=== PATIENT | male | born 2000 | race Two or more races ===

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

== ENCOUNTER 2021-04-25 20:45 | Emergency (ER) | payer OTHER ==
[~2021-04-25] VITALS: Ht 172.7 cm; Wt 86.5 kg
[~2021-04-25 20:45] MED LIST: AMOX875T PO; OFLO5DRO7 EACH EAR
[2021-04-25] MEDS ORDERED: IV NORMAL SALINE 1000ML BAG 1,000 ML IV SCH (22:00)
[2021-04-25] MEDS ORDERED: ACETAMINOPHEN 500 MG TABLET PO ONE (22:00)
--- NOTE | 2021-04-25 22:03 | PHYS DOC ---
Past Medical History Past Medical History: No Pertinent History Past Surgical History: No Surgical History Smoking Status: Never Smoker Alcohol Use: None Drug Use: None General Adult EDM: Chief Complaint: FLU SYMPTOM HPI: HPI: Patient is a 20 year old male with no significant medical history presenting today complaining of a productive cough, nasal congestion, fever, substernal chest pain, symptoms began 3 days ago. Patient states he does not have any chest pain right now in the ED. He states he is unvaccinated against COVID19. Review of Systems: Review of Systems: Constitutional: Reports fever Eyes: Denies change in visual acuity. [] HENT: Reports nasal congestion, denies sore throat. [] Respiratory: Reports cough, denies shortness of breath. [] Cardiovascular: Denies chest pain or edema. [] GI: Denies abdominal pain, nausea, vomiting, bloody stools or diarrhea. [] : Denies dysuria. [] Musculoskeletal: Denies back pain or joint pain. [] Integument: Denies rash. [] Neurologic: Denies headache, focal weakness or sensory changes. [] Psychiatric: Denies depression or anxiety. [] Heart Score: C/O Chest Pain: N/A Risk Factors: Risk Factors: DM, Current or recent (<one month) smoker, HTN, HLP, family history of CAD, obesity. Risk Scores: Score 0 - 3: 2.5% MACE over next 6 weeks - Discharge Home Score 4 - 6: 20.3% MACE over next 6 weeks - Admit for Clinical Observation Score 7 - 10: 72.7% MACE over next 6 weeks - Early Invasive Strategies Current Medications: Current Medications Medications (Trade) Dose Ordered Sig/James Start Time Stop Time Status Last Admin Dose Admin Acetaminophen (Tylenol) 1,000 mg 1X ONCE 04/25/21 22:00 04/25/21 22:01 Sodium Chloride 1,000 ml @ 1,000 mls/hr Q1H 04/25/21 22:00 04/26/21 00:01 Allergies: Allergies: Allergies Coded Allergies Type Severity Reaction Last Updated Verified No Known Drug Allergies 04/28/16 No Physical Exam: PE: Constitutional: Well developed, well nourished, no acute distress, non-toxic appearance. [] HENT: Normocephalic, atraumatic, bilateral external ears normal, oropharynx moist, no oral exudates, nose normal. [] Eyes: PERRLA, EOMI, conjunctiva normal, no discharge. [] Neck: Normal range of motion, no tenderness, supple, no stridor. [] Cardiovascular: Tachycardic Lungs & Thorax: Bilateral breath sounds clear to auscultation [] Abdomen: Bowel sounds normal, soft, no tenderness, no masses, no pulsatile masses. [] Skin: Warm, dry, no erythema, no rash. [] Back: No tenderness, no CVA tenderness. [] Extremities: No tenderness, no cyanosis, no clubbing, ROM intact, no edema. [] Neurologic: Alert and oriented X 3, normal motor function, normal sensory function, no focal deficits noted. [] Psychologic: Affect normal, judgement normal, mood normal. [] Current Patient Data: Vital Signs: Vital Signs Date Time Temp Pulse Resp B/P (MAP) Pulse Ox O2 Delivery O2 Flow Rate FiO2 04/25/21 21:29 103.2 153 20 180/102 (128) 97 Room Air 103.2 EKG: EK interpreted by Dr. Goyal sinus tachycardia heart rate 121 Q waves on V1, T wave inversion in lead III, no STEMI [] [address] Goyal sinus tachycardia heart rate 104 no STEMI Radiology/Procedures: Radiology/Procedures: []PROCEDURE: PORTABLE CHEST 1V Exam: Chest one view INDICATION: Fever TECHNIQUE: Frontal view of the chest Comparisons: None FINDINGS: The cardiomediastinal silhouette and pulmonary vessels are within normal limits. The lung and pleural spaces are clear. IMPRESSION: No acute cardiopulmonary process. Electronically signed by: Ari Bowen MD (04/25/2021 10:19 PM) [facility] DICTATED and SIGNED BY: ARI BOWEN MD DATE: 04/25/21 [id number] Course & Med Decision Making: Course & Med Decision Making Pertinent Labs and Imaging studies reviewed. (See chart for details) This a 20-year-old male patient presenting to the ED today complaining of cough, nasal congestion, fever, chest pain, symptoms for 3 days. Vitals on arrival to the ED temperature 103.2, heart rate 153, respiration 20 on room air, O2 sats 97%, blood pressure 180/102 Patient was started on the sepsis protocol including IV fluids and Tylenol. Chest x-ray negative for pneumonia. CBC with a normal WBC, CMP with no acute findings, UA negative for infection, lactic is normal. Positive for influenza A, negative rapid Covid test 2358 Patient's heart rate has improved with 1 L of fluid he is already in the low 100s. Currently on the second liter of fluids blood pressure has come down to 147/79 Discharge to home after the second liter of fluid. Tylenol/Motrin for pain or fever. Instructed to push fluids. Maintain good antigen, follow-up with PCP next week, instructed to return to the ED at any point symptoms worsen Dragon Disclaimer: Dragon Disclaimer: This electronic medical record was generated, in whole or in part, using a voice recognition dictation system. Departure Departure Impression: Primary Impression: Fever Qualified Codes: R50.9 - Fever, unspecified Additional Impressions: Influenza A Tachycardia Cough Referrals: TAMI CARCAMO (PCP) Patient Instructions: Fever, Adult, Influenza A (H1N1) Additional Instructions: You tested positive for influenza A, we will put you on Tamiflu, take it as prescribed. Push fluids, rest, take Tylenol or Motrin for pain or fever. Maintain good hand hygiene. Follow-up with your doctor next week, come back to the ED at any point symptoms worsen Scripts Oseltamivir Phosphate (TAMIFLU) 75 Mg Capsule 1 CAP PO BID, #10 CAP Prov: ОЛЬГА MEZA APRN 04/26/21 ОЛЬГА MEZA APRN Apr 25, 2021 22:03
[2021-04-25 22:04] LABS: BASO % 0 % (0-3); EOS % 0 % (0-3); HEMATOCRIT 50.2 % (39.0-53.0); HEMOGLOBIN 17.5 g/dL (13.0-17.5); LYMPH # 0.6 x10^3/uL (1.0-4.8); LYMPH % 9 % (24-48); MEAN CORPUSCULAR HEMOGLOBIN 32 pg (25-35); MEAN CORPUSCULAR HGB CONC 35 g/dL (31-37); MEAN CORPUSCULAR VOLUME 90 fL (79-100); MONO # 0.7 x10^3/uL (0.0-1.1); MONO % 10 % (0-9); NEUT # 5.6 x10^3/uL (1.8-7.7); NEUT % 80 % (31-73); PLATELET COUNT 190 x10^3/uL (140-400); RED BLOOD COUNT 5.56 x10^6/uL (4.30-5.70); RED CELL DISTRIBUTION WIDTH 12.1 % (11.5-14.5)
--- NOTE | 2021-04-25 22:22 | RAD ---
Exam: Chest one view INDICATION: Fever TECHNIQUE: Frontal view of the chest Comparisons: None FINDINGS: The cardiomediastinal silhouette and pulmonary vessels are within normal limits. The lung and pleural spaces are clear. IMPRESSION: No acute cardiopulmonary process. Electronically signed by: Ari Dill MD (04/25/2021 10:19 PM) [facility]
[2021-04-25 22:25] LABS: CALCIUM 8.9 mg/dL (8.5-10.1); CREATININE 0.9 mg/dL (0.7-1.3); GFR 107.6; POTASSIUM 3.9 mmol/L (3.5-5.1)
[2021-04-25 22:31] LABS: ALBUMIN 4.1 g/dL (3.4-5.0); ALBUMIN/GLOBULIN RATIO 0.9 (1.0-1.7); TOTAL BILIRUBIN 0.5 mg/dL (0.2-1.0); TOTAL PROTEIN 8.7 g/dL (6.4-8.2)
[2021-04-25 22:49] LABS: BILIRUBIN,URINE NEGATIVE (NEG); CLARITY,URINE CLEAR; COLOR,URINE YELLOW; NITRITE,URINE NEGATIVE (NEG); PROTEIN,URINE NEGATIVE (NEG-TRACE); UROBILINOGEN,URINE 0.2 mg/dL (0.2 mg/dL)
[2021-04-25 22:54] LABS: INFLUENZA A PATIENT POSITIVE (NEGATIVE); INFLUENZA B PATIENT NEGATIVE (NEGATIVE)
[2021-04-25 22:56] LABS: BARBITURATES NEG (NEG); BENZODIAZEPINES NEG (NEG); CANNABINOIDS NEG (NEG); COCAINE NEG (NEG); METHADONE NEG (NEG); OPIATES NEG (NEG); PHENCYCLIDINE NEG (NEG)
[2021-04-25 22:57] LABS: BACTERIA,URINE 0 /HPF (0-FEW); RBC,URINE 0 /HPF (0-2); WBC,URINE 0 /HPF (0-4)
[2021-04-25 22:59] LABS: AMPHETAMINE/METHAMPHETAMINE NEG (NEG)
[2021-04-25] MEDS ORDERED: OSELTAMIVIR 75 MG CAPSULE PO ONE (23:30)
[2021-04-25] MEDS ORDERED: IBUPROFEN 200 MG TABLET. PO ONE (23:30)
[2021-04-26 00:30] VITALS: BP 125/72
[2021-04-26] MEDS ORDERED: OSEL75CA PO (00:42)
--- NOTE | 2021-04-26 02:48 | EKG ---
[facility] [address] [place] [address] Test Date: 2021-04-26 Test Time: 00:13:34 Pat Name: KRISTEL ELMORE Department: Room: Gender: M Washing Machine Repairer: : 2000 Requested By: ОЛЬГА MEZA Order Number: [id number] Reading MD: Herman Gutierrez MD Measurements Intervals [place] Rate: 104 P: 31 ND: 140 QRS: 14 QRSD: 84 T: 4 QT: 306 QTc: 403 Interpretive Statements SINUS TACHYCARDIA Electronically Signed On 04-27-2021 8:22:32 SUPERVISOR COATING by Herman Gutierrez MD
--- NOTE | 2021-04-26 02:48 | EKG ---
[facility] [address] [place] [address] Test Date: 2021-04-25 Test Time: 22:46:14 Pat Name: KRISTEL ELMORE Department: Room: Gender: M Manager Enrollment: : 2000 Requested By: ОЛЬГА MEZA Order Number: [id number] Reading MD: Herman Gutierrez MD Measurements Intervals [place] Rate: 121 P: 28 [place]: 146 QRS: 27 QRSD: 86 T: 0 QT: 290 QTc: 414 Interpretive Statements SINUS TACHYCARDIA NON-SPECIFIC ST/T CHANGES Electronically Signed On 04-27-2021 8:23:08 COMB SETTER by Herman Gutierrez MD
--- NOTE | 2021-04-27 16:21 | NUR ---
IP: Informed pt of negative covid test. Pt verbalized understanding.
== END 2021-04-25 22:16 | disposition home or self-care (01) ==
LOC: ER 20:45
DX: J09.X2 Influenza due to identified novel influenza A virus with other respiratory manifestations (principal); R00.0 Tachycardia, unspecified; R50.9 Fever, unspecified; R05.9 Cough, unspecified; Z20.822 Contact with and (suspected) exposure to COVID-19
CPT/HCPCS: 36415; 71045; 80053; 80307; 81001; 83605; 84145; 85025; 87040; 87428; 93005; 96360; 99285; C9803; J7030; U0003